=== PATIENT | female | born 2000 | race Hispanic/Latino ===

== ENCOUNTER 2024-09-19 21:40 | Emergency (ER) | payer MEDICAID ==
[~2024-09-19] VITALS: Ht 160 cm; Wt 85.3 kg
[2024-09-19 22:26] VITALS: PULSE 87; RESP 16; TEMP 98.7; O2SAT 99
[2024-09-19] MEDS ORDERED: BENZONATATE100 MG PO (22:37)
[2024-09-19] MEDS ORDERED: ONDANSETRON ODT4 MG PO (22:37)
== END 2024-09-19 23:10 | disposition home or self-care (01) ==
LOC: FSED 22:14
DX: R05.9 Cough, unspecified (principal); J06.9 Acute upper respiratory infection, unspecified
CPT/HCPCS: 99283